=== PATIENT | male | born 1960 | race Caucasian/White ===

== ENCOUNTER 2020-12-17 08:24 | Outpatient (CLI) | payer OTHER | END 2020-12-17 08:25 | disposition home or self-care (01) | LOC: CSHCT 08:24 | PROVIDERS: ATTEND Otolaryngology Plastic Surgery within the Head & Neck | DX: H72.92 Unspecified perforation of tympanic membrane, left ear (principal); H92.12 Otorrhea, left ear; H73.892 Other specified disorders of tympanic membrane, left ear; Z96.22 Myringotomy tube(s) status; H74.8X2 Other specified disorders of left middle ear and mastoid | CPT/HCPCS: 70480 ==

== ENCOUNTER 2022-05-31 20:39 | Emergency (ER) | payer BC ==
[2022-05-31] MEDS ORDERED: Clindamycin 150 MG CAP ONE (21:41)
== END 2022-05-31 22:00 | disposition home or self-care (01) ==
LOC: CSHERS 20:39
DX: L03.313 Cellulitis of chest wall (principal)
CPT/HCPCS: 99283

== ENCOUNTER 2022-06-03 12:40 | Emergency (ER) | payer BC ==
[2022-06-03 14:02] LABS: #Basophils 0.1 10x3/uL (0.0-0.2); #Eosinphils 0.2 10x3/uL (0.0-0.5); #Monocytes 0.7 10x3/uL (0.0-1.1); #Neutrophils 5.2 10x3/uL (1.5-8.4); %Basophils 0.8 % (0.0-2.0); %Eosinophils 2.8 % (0.0-6.0); %Lymphocytes 18.4 % (18.0-47.0); %Monocytes 8.7 % (0.0-10.0); %Neutrophils 69.2 % (40.0-75.0); Mean Corpuscular HGB CONC 34.7 g/dL (32.0-36.0); Mean Corpuscular Hemoglobin 30.3 pg (27.0-33.0); Mean Corpuscular Volume 87.4 fl (81.2-95.1); Mean Platelet Volume 9.6 fl (7.4-10.4); Platelet Count 224 10x3/uL (150-450); RBC Distribution Width 11.8 % (11.5-14.5); Red Blood Cell (RBC) Count 4.62 10x6/uL (4.32-5.72); White Blood Cell (WBC) Count 7.5 10x3/uL (3.5-10.5)
[2022-06-03] MEDS ORDERED: Lidocaine 1% w/Epinephrine 1:200K 30 ML VIAL ONE (14:10)
[2022-06-03 14:15] LABS: ALT (SGPT) 19 U/L (8-55); AST (SGOT) 23 U/L (5-34); Albumin 4.7 g/dL (3.4-4.8); Alkaline Phosphatase 86 U/L (40-110); Anion Gap 13 mmol/L (10-20); BUN (Urea Nitrogen) 13 mg/dL (8.4-25.7); Bilirubin, Total 0.6 mg/dL (0.2-1.2); Calc. Creatinine Clearance 0 mL/min (70-130); Calcium 9.4 mg/dL (7.8-10.44); Carbon Dioxide 26 mmol/L (23-31); Chloride 103 mmol/L (98-107); Estimated GFR 79; Globulin 2.5 g/dL (2.4-3.5); Glucose 82 mg/dL (80-115); Potassium 4.1 mmol/L (3.5-5.1); Protein, Total 7.2 g/dL (5.8-8.1); Sodium 138 mmol/L (136-145)
== END 2022-06-03 14:30 | disposition home or self-care (01) ==
LOC: CSHERS 12:40
DX: L02.213 Cutaneous abscess of chest wall (principal)
CPT/HCPCS: 10060; 36415; 80053; 83605; 85025; 87040

== ENCOUNTER 2024-10-24 15:18 | Outpatient (CLI) | payer BC | END 2024-10-24 15:19 | disposition home or self-care (01) | LOC: CSHWCC 15:18 | PROVIDERS: ATTEND Nurse Practitioner Family | DX: T25.221D Burn of second degree of right foot, subsequent encounter (principal) | CPT/HCPCS: 11042; 11045; 99213; G0463 ==